=== PATIENT | male | born 1980 | race Hispanic/Latino ===

== ENCOUNTER 2024-05-12 06:30 | Emergency (ER) | payer SELFPAY ==
[2024-05-12] VITALS (14 sets, daily range): BP systolic 108–156; BP diastolic 59–86
[2024-05-12] MEDS ORDERED: ALUM & MAG HYDROX-SIMETHICONE 30 ML PO ONE (06:50)
[2024-05-12] MEDS ORDERED: Pantoprazole Sodium 40 MG VIAL (Protonix) IV ONE (06:50)
[2024-05-12] MEDS ORDERED: LIDOCAINE VISCOUS 2% 15 ML UDC VT ONE (06:55)
[2024-05-12 07:08] LABS: BASO% 0.2 % (0-3); HEMATOCRIT 47.7 % (39.0-50.0); HEMOGLOBIN 16.2 g/dl (14.0-18.0); IMMATURE GRANULOCYTES 0.7 % (0.0-5.0); LYMPH% 26.7 % (15-41); MEAN CELL VOLUME 88.5 fL CALC (80.0-100.0); MEAN CORPUSCULAR HGB 30.1 pG CALC (26.0-32.0); MONO% 4.3 % (2-13); NEUT# 6.03 thou/uL (1.82-7.42); NEUT% 67.1 % (42-76); RED BLOOD COUNT 5.39 mill/uL (4.70-6.10)
[2024-05-12 07:19] LABS: ALKALINE PHOSPHATASE 141 u/l (38-126); ANION GAP 19 (6-22 (CALC)); BILIRUBIN, TOTAL 0.8 mg/dL (0.2-1.3); BUN 12 mg/dL (9-20); BUN/CREATININE RATIO 14 (12-20 (CALC)); CARBON DIOXIDE 22 mmol/l (22-30); CHLORIDE 103 mmol/l (95-108); CREATININE 0.9 mg/dL (0.7-1.3); ESTIMATED GFR 107 ML/MIN (>=90 (CALC)); LIPASE 123 u/l (23-300); POTASSIUM 3.9 mmol/l (3.5-5.1); SGOT/AST 96 u/l (17-59); SODIUM 140 mmol/l (137-146); TOTAL PROTEIN 9.1 g/dL (6.3-8.2)
[2024-05-12 07:49] LABS: URINE BILIRUBIN - DIPSTICK Negative (NEGATIVE); URINE BLOOD DIPSTICK Negative (NEGATIVE); URINE CLARITY Clear; URINE GLUCOSE - DIPSTICK Negative (NEGATIVE); URINE KETONE Negative (NEGATIVE); URINE LEUK ESTERASE Negative (Negative); URINE NITRITE - DIPSTICK Negative (Negative); URINE PH 5.5 (4.5-8.0); URINE PROTEIN - DIPSTICK Negative (NEG-TRACE); URINE SPECIFIC GRAVITY <=1.005; URINE UROBILINOGEN - DIPSTICK 0.2 E.U./dL (0.2)
[2024-05-12 07:55] LABS: URINE COLOR Yellow
== END 2024-05-12 11:06 | disposition home or self-care (01) | DRG 313 ==
LOC: ED 06:30
PROVIDERS: Emergency Medicine
DX: R07.9 Chest pain, unspecified (principal)
CPT/HCPCS: J2470